=== PATIENT | male | born 1940 | race African-American/Black ===

== ENCOUNTER 2020-12-04 04:06 | Inpatient (IN) | payer MEDICARE ==
[~2020-12-04] VITALS: Ht 171.4 cm; Wt 80.5 kg
[~2020-12-04 04:06] MED LIST: ATEN-42 PO; LEVO25TA7 PO; LISI-186 PO; PANT40TA51 PO; TRIA1TAB92 PO
[2020-12-04 04:59] LABS: BASOPHILS % 0.3 % (0.0-2.0); EOSINOPHILS % 0.9 % (0.0-5.0); HEMATOCRIT. 37.1 % (42.0-52.0); HEMOGLOBIN. 12.4 g/dL (14.0-18.0); LYMPHOCYTES % 17.6 % (20.0-50.0); MEAN CORPUSCULAR HEMOGLOBIN 29.6 pg (28.0-32.0); MEAN CORPUSCULAR VOLUME 89.1 fL (80.0-94.0); MEAN PLATELET VOLUME 8.7 fl (7.4-10.4); MONOCYTES % 11.6 % (2.0-8.0); NEUTROPHILS % 69.6 % (40.0-76.0); PLATELET 117 x1000/uL (130-400); RED BLOOD CELL COUNT 4.17 mill/uL (4.7-6.1)
[2020-12-04 05:04] LABS: CHLORIDE 98 mEq/L (98-107)
[2020-12-04] MEDS ORDERED: DOCUSATE SODIUM 100MG CAPSULE PO PRN (10:00)
[2020-12-04] MEDS ORDERED: ACETAMINOPHEN 650MG SUPP PR PRN (10:00)
[2020-12-04] MEDS ORDERED: GUAIFENESIN 200MG/10ML SUGAR FREE UDC PO PRN (10:00)
[2020-12-04] MEDS ORDERED: HYDROCODONE/ACETAMINOPHEN 5/325MG TABLET PO PRN (10:00)
[2020-12-04] MEDS ORDERED: ONDANSETRON HCL 4MG/2ML INJ IV PRN (10:00)
[2020-12-04] MEDS ORDERED: MAGNESIUM/ALUMINUM HYDROXIDE/SIMETHICONE 30ML UDC PO PRN (10:00)
[2020-12-04] MEDS ORDERED: IPRATROPIUM/ALBUTEROL 0.5-3(2.5)MG/3ML NEB NEB PRN (10:00)
[2020-12-04] MEDS ORDERED: LORAZEPAM 0.5MG TABLET PO PRN (10:00)
[2020-12-04] MEDS ORDERED: HYDRALAZINE 20MG/ML VIAL IV PRN (10:00)
[2020-12-04] MEDS ORDERED: ACETAMINOPHEN 325MG TABLET PO PRN (10:00)
[2020-12-04] MEDS ORDERED: NA PHOS,M-B/NA PHOS,DI-BA ENEMA 118ML PR PRN (10:00)
[2020-12-04] MEDS ORDERED: DIPHENHYDRAMINE 50MG/ML VIAL IV PRN (10:00)
[2020-12-04 11:00] VITALS: BP 134/53
[2020-12-04] MEDS ORDERED: MIRA50TA MT (11:11)
[2020-12-04] MEDS ORDERED: DONE5TAB7 MT (11:11)
[2020-12-04] MEDS ORDERED: PANT40TA51 MT (11:11)
[2020-12-04] MEDS ORDERED: MULT-1234 MT (11:11)
[2020-12-04 11:19] VITALS: BP 134/53
[2020-12-04 16:00] VITALS: BP_SYST 112; BP_SYST 135; BP_SYST 144; BP_DIAS 52; BP_DIAS 59; BP_DIAS 63
[2020-12-04 16:18] LABS: CREATINE KINASE 288 IU/L (39-308)
[2020-12-04 16:19] LABS: CREATINE KINASE MB FRACTION 6.1 ng/mL (0.5-3.6)
[2020-12-04] MEDS: SODIUM CHLORIDE 0.9% 1,000 ML IV SCH (17:43)
[2020-12-04 20:00] VITALS: BP 153/57
[2020-12-05] VITALS: BP 134/64
[2020-12-05 00:10] LABS: CREATINE KINASE 298 IU/L (39-308)
[2020-12-05 00:14] LABS: CREATINE KINASE MB FRACTION 5.3 ng/mL (0.5-3.6)
[2020-12-05 04:00] VITALS: BP 101/65
[2020-12-05] MEDS: SODIUM CHLORIDE 0.9% 1,000 ML IV SCH (06:25)
[2020-12-05 06:56] LABS: BASOPHILS % 0.2 % (0.0-2.0); EOSINOPHILS % 0.6 % (0.0-5.0); HEMATOCRIT. 39.1 % (42.0-52.0); HEMOGLOBIN. 12.8 g/dL (14.0-18.0); LYMPHOCYTES % 16.6 % (20.0-50.0); MEAN CORPUSCULAR HEMOGLOBIN 29.4 pg (28.0-32.0); MEAN CORPUSCULAR VOLUME 89.5 fL (80.0-94.0); MEAN PLATELET VOLUME 9.4 fl (7.4-10.4); MONOCYTES % 10.4 % (2.0-8.0); NEUTROPHILS % 72.2 % (40.0-76.0); PLATELET 125 x1000/uL (130-400); RED BLOOD CELL COUNT 4.36 mill/uL (4.7-6.1); RED CELL DISTRIBUTION WIDTH 14.5 % (11.6-14.6)
[2020-12-05 06:58] LABS: CHLORIDE 103 mEq/L (98-107)
[2020-12-05 07:13] LABS: LDL CHOLESTEROL 94 mg/dL (5-100)
[2020-12-05 07:14] LABS: HDL CHOLESTEROL 58 mg/dL (40-59); TOTAL IRON BINDING CAPACITY 232 ug/dL (250-450)
[2020-12-05 07:17] LABS: T4 FREE 1.25 ng/dL (0.76-1.46)
[2020-12-05 07:33] LABS: VITAMIN B12 SERUM 541 pg/mL (211-911)
[2020-12-05 07:56] VITALS: BP 136/58
[2020-12-05 11:11] VITALS: BP 124/47
[2020-12-05] MEDS ORDERED: POTASSIUM CHLORIDE 20MEQ/PACKET PO NR (11:45)
[2020-12-05 15:42] VITALS: BP 146/53
[2020-12-05 20:00] VITALS: BP 117/56
[2020-12-06] VITALS: BP 126/55
[2020-12-06 04:00] VITALS: BP 132/57
[2020-12-06 08:00] VITALS: BP 161/87
[2020-12-06 11:01] LABS: BASOPHILS % 0.1 % (0.0-2.0); EOSINOPHILS % 0.4 % (0.0-5.0); HEMATOCRIT. 38.8 % (42.0-52.0); HEMOGLOBIN. 13.3 g/dL (14.0-18.0); LYMPHOCYTES % 9.9 % (20.0-50.0); MEAN CORPUSCULAR HEMOGLOBIN 30.9 pg (28.0-32.0); MEAN CORPUSCULAR VOLUME 90.1 fL (80.0-94.0); MEAN PLATELET VOLUME 9.4 fl (7.4-10.4); NEUTROPHILS % 82.6 % (40.0-76.0); PLATELET 129 x1000/uL (130-400); RED BLOOD CELL COUNT 4.31 mill/uL (4.7-6.1); RED CELL DISTRIBUTION WIDTH 14.6 % (11.6-14.6)
[2020-12-06 11:09] LABS: CHLORIDE 101 mEq/L (98-107)
[2020-12-06 12:00] VITALS: BP 132/66
[2020-12-06 16:00] VITALS: BP 111/69
[2020-12-06] MEDS: SODIUM CHLORIDE 0.9% 1,000 ML IV SCH (19:00)
[2020-12-06 19:46] VITALS: BP_SYST 130; BP_SYST 158; BP_DIAS 65; BP_DIAS 72
[2020-12-07] VITALS: BP 136/67
[2020-12-07 04:30] VITALS: BP 169/80
[2020-12-07 06:49] LABS: CHLORIDE 104 mEq/L (98-107)
[2020-12-07 06:57] LABS: BASOPHILS % 0.1 % (0.0-2.0); EOSINOPHILS % 0.3 % (0.0-5.0); HEMATOCRIT. 40.1 % (42.0-52.0); HEMOGLOBIN. 13.2 g/dL (14.0-18.0); LYMPHOCYTES % 9.4 % (20.0-50.0); MEAN CORPUSCULAR HEMOGLOBIN 29.5 pg (28.0-32.0); MEAN CORPUSCULAR VOLUME 89.6 fL (80.0-94.0); MEAN PLATELET VOLUME 9.1 fl (7.4-10.4); MONOCYTES % 9.8 % (2.0-8.0); NEUTROPHILS % 80.4 % (40.0-76.0); PLATELET 142 x1000/uL (130-400); RED BLOOD CELL COUNT 4.48 mill/uL (4.7-6.1); RED CELL DISTRIBUTION WIDTH 14.7 % (11.6-14.6)
[2020-12-07 08:00] VITALS: BP 122/68
[2020-12-07] MEDS ORDERED: POTASSIUM CHLORIDE 20MEQ/PACKET PO NR (09:30)
[2020-12-07] MEDS: SODIUM CHLORIDE 0.9% 1,000 ML IV SCH (09:34)
[2020-12-07 12:00] VITALS: BP 157/89
[2020-12-07] MEDS ORDERED: POTASSIUM CHLORIDE 20MEQ TABLET SR PO NR (13:45)
[2020-12-07] MEDS ORDERED: HYDRALAZINE HCL 25MG TABLET PO SCH (14:00)
[2020-12-07 16:00] VITALS: BP 125/78
[2020-12-07 16:37] VITALS: BP 157/88
== END 2020-12-07 17:20 | disposition home or self-care (01) | DRG 74 ==
LOC: ER 04:06 → 6WST 05:11 → ENRESERV 07:38
PROVIDERS: ADMIT Internal Medicine; ATTEND Internal Medicine
DX: G90.9 Disorder of the autonomic nervous system, unspecified (principal); E87.1 Hypo-osmolality and hyponatremia; I10 Essential (primary) hypertension; F03.90 Unspecified dementia, unspecified severity, without behavioral disturbance, psychotic disturbance, mood disturbance, and anxiety; E86.0 Dehydration; D64.9 Anemia, unspecified; E53.8 Deficiency of other specified B group vitamins; D69.6 Thrombocytopenia, unspecified; E78.5 Hyperlipidemia, unspecified; K21.9 Gastro-esophageal reflux disease without esophagitis; I44.1 Atrioventricular block, second degree; Z90.49 Acquired absence of other specified parts of digestive tract; Z88.6 Allergy status to analgesic agent; Z79.899 Other long term (current) drug therapy; R00.1 Bradycardia, unspecified
CPT/HCPCS: 36415; 71045; 80048; 80053; 80061; 82550; 82553; 82607; 83540; 83550; 83735; 83880; 84439; 84443; 84481; 84484; 85025; 85044; 93005; 93306; 93880; 93970; 97116; 97162; 99285; J0360; J1200; J7030